=== PATIENT | male | born 1965 | race African-American/Black ===

== ENCOUNTER 2017-04-14 07:13 | Emergency (ER) | payer MEDICAID ==
[~2017-04-14] VITALS: Ht 182.9 cm; Wt 102.1 kg
[2017-04-14 07:30] VITALS: BP 143/79
== END 2017-04-14 07:48 | disposition home or self-care (01) ==
LOC: ER 07:13
DX: M54.2 Cervicalgia (principal); E04.9 Nontoxic goiter, unspecified; Z76.0 Encounter for issue of repeat prescription

== ENCOUNTER 2017-06-09 18:33 | Emergency (ER) | payer MEDICAID ==
[~2017-06-09] VITALS: Ht 182.9 cm; Wt 98.0 kg
[2017-06-09 18:52] VITALS: BP 135/84
== END 2017-06-09 20:59 | disposition home or self-care (01) ==
LOC: ER 18:33
DX: E11.9 Type 2 diabetes mellitus without complications (principal); I10 Essential (primary) hypertension; E07.9 Disorder of thyroid, unspecified; Z76.0 Encounter for issue of repeat prescription

== ENCOUNTER 2017-08-06 14:14 | Emergency (ER) | payer MEDICAID ==
[~2017-08-06] VITALS: Ht 182.9 cm; Wt 96.2 kg
[2017-08-06 16:48] VITALS: BP 148/92
[2017-08-06] MEDS ORDERED: KETOROLAC TROMETH 60MG/2ML VIAL IM ONE (17:30)
== END 2017-08-06 18:33 | disposition home or self-care (01) ==
LOC: ER 14:14
DX: S20.229A Contusion of unspecified back wall of thorax, initial encounter (principal); M79.1 Myalgia; E11.9 Type 2 diabetes mellitus without complications; I10 Essential (primary) hypertension; E07.9 Disorder of thyroid, unspecified; F17.210 Nicotine dependence, cigarettes, uncomplicated; R55 Syncope and collapse; W18.39XA Other fall on same level, initial encounter; Y93.89 Activity, other specified; Y92.89 Other specified places as the place of occurrence of the external cause; Y99.8 Other external cause status
CPT/HCPCS: 72131; 96372; 99284; J1885

== ENCOUNTER 2018-12-16 03:07 | Inpatient (IN) | payer MEDICAID ==
[~2018-12-16] VITALS: Ht 175.3 cm; Wt 87.2 kg
[2018-12-16 03:50] LABS: Basophils # (auto) 0 uL; Basophils % (auto) 0.1 % (0.0-2.0); Eosinophils # (auto) 0 uL; Eosinophils % (auto) 0.2 % (0.0-7.0); Lymphocytes # (auto) 1.3 uL; Monocytes # (auto) 0.4 uL; Monocytes % (auto) 5.1 % (0.0-12.0); Neutrophils # (auto) 6.2 uL; Neutrophils % (auto) 78.6 % (37.0-80.0); Nucleated Red Blood Cells % 0.2 %; White Blood Cell 7.9 10^3/uL (4.4-10.8)
[2018-12-16 03:51] LABS: Hematocrit 48.7 % (41.0-53.0); Hemoglobin 16.4 g/dL (13.5-17.5); Mean Corpuscular Hemoglobin 29.5 pg (28.0-32.0); Mean Corpuscular Hgb Conc. 33.6 g/dL (32.0-36.0); Mean Corpuscular Volume 87.8 fL (80.0-100.0); Platelet Count (auto) 316 10^3/uL (140-450); Red Blood Cells 5.55 10^6/uL (4.5-5.90)
[2018-12-16 04:10] LABS: Alanine Aminotransferase 25 U/L (16-61); Albumin 4.1 g/dL (3.4-5.0); Anion Gap 12 (5-15); Aspartate Aminotransferase 13 U/L (15-37); BUN/Creatinine Ratio 13.3; Blood Urea Nitrogen 18 mg/dL (7-18); Calcium 8.9 mg/dL (8.5-10.1); Carbon Dioxide 25 mmol/L (21-32); Chloride 101 mmol/L (98-107); GFR African American 71 mL/min; GFR Non-African American 59 mL/min; Glucose 242 mg/dL (74-106); Potassium 4.3 mmol/L (3.5-5.1); Sodium 138 mmol/L (136-145)
[2018-12-16 04:15] LABS: Alkaline Phosphatase 153 U/L (45-117); Bilirubin, Total 0.6 mg/dL (0.2-1.0); Total Protein 8.3 g/dL (6.4-8.2)
[2018-12-16] MEDS ORDERED: SODIUM CHLORIDE 0.9% 1,000 ML IVB ONE (06:45)
[2018-12-16] MEDS ORDERED: MORPHINE SULFATE 4 MG/ML SYR/VIAL IV ONE (06:45)
[2018-12-16] MEDS ORDERED: ONDANSETRON HCL 4 MG/2 ML VIAL IV ONE (06:45)
[2018-12-16] MEDS ORDERED: ONDANSETRON HCL 4 MG/2 ML VIAL IV PRN (07:00)
[2018-12-16] MEDS ORDERED: DEXTROSE (50%) 50ML SYRG IV PRN (07:00)
[2018-12-16 07:53] LABS: INR < 0.93 (0.9-1.15); Partial Thromboplastin Time 24.3 sec (23.64-32.05)
[2018-12-16] MEDS ORDERED: GASTROGRAFIN 120 ML SOL ONE (07:56)
[2018-12-16 08:00] LABS: Magnesium 2.6 mg/dL (1.6-2.6)
[2018-12-16] MEDS ORDERED: LIDOCAINE VISCOUS 2% 15ML UD ONE (08:13)
[2018-12-16] MEDS: SODIUM CHLORIDE 0.9% 1,000 ML IV SCH ×2 (10:01→17:47)
[2018-12-16] MEDS: MORPHINE SULFATE 4 MG/ML SYR/VIAL IV PRN ×3 (10:29→20:43)
[2018-12-16] MEDS ORDERED: LEVOFLOXACIN 500MG 100 ML IV ONE (10:45)
[2018-12-16] MEDS ORDERED: PROMETHAZINE HCL 25 MG/ML 1ML ONE (12:07)
[2018-12-16] MEDS: PROMETHAZINE HCL 25 MG/ML 1ML IV PRN ×2 (12:14→18:31)
[2018-12-16] MEDS: ACCU-CHEK COMFORT CURVE STRIP VI SCH ×3 (12:22→23:42)
[2018-12-16] MEDS: InsuLIN REG 1unit/0.01ml Soln (100units/ml) SC SCH ×3 (12:23→23:42)
--- NOTE | 2018-12-16 13:10 | NUR ---
MED/SURG admit from ER ALEX JONES admitted to MED/SURG unit after SBAR received. Patient oriented to Kaci Thurman, primary RN, unit, room, bed, and unit policies regarding patient care and visiting hours. Patient weighed by bedscale and encouraged to call if they need something. All questions and concerns addressed, patient verbalized understanding. Note:
--- NOTE | 2018-12-16 13:49 | NUR ---
UNABLE TO DO COMPLETE PHYSICAL ASSESSMENT. PATIENT IS IN PAIN AND REFUSING TO MOVE OR TAKE PANTS OFF. PATIENT IS MAKING MOANING SOUNDS.
[2018-12-16] MEDS: metroNIDAZOLE 500MG/100ML 100 ML IV SCH ×2 (15:15→21:16)
[2018-12-16 16:17] VITALS: BP 140/93
--- NOTE | 2018-12-16 16:34 | NUR ---
patient vomiting green bile
[2018-12-16 17:00] VITALS: BP 148/92
--- NOTE | 2018-12-16 17:11 | NUR ---
paged radiology to see if small bowel series was done.
--- NOTE | 2018-12-16 19:04 | NUR ---
call from Dr. Ibrahima Matos notified of patients high grade bowel obstruction.
--- NOTE | 2018-12-16 19:08 | NUR ---
Dr. Byrd returned called and stated to page Dr. Menard Addendum: 12/16/18 at 1943 by Kaci Thurman RN and to page the surgeon.
--- NOTE | 2018-12-16 19:14 | NUR ---
paged Dr. Rodriguez
--- NOTE | 2018-12-16 19:20 | NUR ---
Dr. Rodriguez ordered to placed in low continous suction NGT, done as ordered.
--- NOTE | 2018-12-16 19:26 | NUR ---
Paged Dr. Menard.
--- NOTE | 2018-12-16 19:40 | NUR ---
Dr. Sailaja Roth called back and said to call Dr. Rodriguez and reduced the phenergan to 12.5mg.i.v.p, and relayed that Lisbeth called and talked to already with order of low continuous suction N.G.T.
[2018-12-16 22:00] VITALS: BP 152/96
--- NOTE | 2018-12-16 23:43 | NUR ---
Insulin not given patient is NPO.
[2018-12-17] MEDS: SODIUM CHLORIDE 0.9% 1,000 ML IV SCH ×2 (02:52→18:27)
[2018-12-17 05:35] VITALS: BP 149/80
[2018-12-17] MEDS: ACCU-CHEK COMFORT CURVE STRIP VI SCH ×4 (05:48→23:51)
[2018-12-17] MEDS: InsuLIN REG 1unit/0.01ml Soln (100units/ml) SC SCH ×5 (05:49→23:52)
[2018-12-17] MEDS: metroNIDAZOLE 500MG/100ML 100 ML IV SCH ×3 (05:55→21:31)
[2018-12-17 06:56] LABS: Basophils # (auto) 0 uL; Basophils % (auto) 0.2 % (0.0-2.0); Eosinophils # (auto) 0 uL; Eosinophils % (auto) 0.1 % (0.0-7.0); Hematocrit 52.2 % (41.0-53.0); Hemoglobin 17.4 g/dL (13.5-17.5); Lymphocytes # (auto) 1.6 uL; Lymphocytes % (auto) 16.1 % (10.0-50.0); Mean Corpuscular Hemoglobin 29.4 pg (28.0-32.0); Mean Corpuscular Hgb Conc. 33.3 g/dL (32.0-36.0); Mean Corpuscular Volume 88.2 fL (80.0-100.0); Monocytes # (auto) 0.7 uL; Monocytes % (auto) 7.3 % (0.0-12.0); Neutrophils # (auto) 7.5 uL; Neutrophils % (auto) 76.3 % (37.0-80.0); Nucleated Red Blood Cells % 0.2 %; Platelet Count (auto) 324 10^3/uL (140-450); Red Blood Cells 5.92 10^6/uL (4.5-5.90); Red Cell Distribution Width 13.2 % (11.8-14.3); White Blood Cell 9.9 10^3/uL (4.4-10.8)
[2018-12-17 07:19] LABS: Albumin 3.7 g/dL (3.4-5.0); Calcium 9.2 mg/dL (8.5-10.1); Potassium 4.4 mmol/L (3.5-5.1)
--- NOTE | 2018-12-17 07:20 | NUR ---
PER DR. SAMANO; PT TO UNDERGO EXPLORATORY LAP. TODAY. CONSENT FORMS OBTAINED, PT MADE AWARE OF POSSIBLE PLAN. IN AGREEMENT, PT REPORTS HE WILL SIGN THE FORM ONCE SPEAKS TO HIM. PRE-OP PREP CHG WIPES COMPLETED. CALL LIGHT WITHIN REACH.
[2018-12-17 07:22] LABS: BUN/Creatinine Ratio 18.2; Bilirubin, Total 0.7 mg/dL (0.2-1.0)
--- NOTE | 2018-12-17 07:41 | NUR ---
Report given to Lisbeth Ortega to assume care, [id number] is resting no distress.
[2018-12-17 08:00] VITALS: BP 152/84
[2018-12-17] MEDS: LEVOFLOXACIN 500MG 100 ML IV SCH (10:02)
--- NOTE | 2018-12-17 11:29 | NUR ---
PT JUST HAD AN EPISODE OF GAS AND HE REPORTS THAT HE WANTS TO WAIT ON THE SURGERY. PT REPORTS HE WOULD LIKE TO EAT SOMETHING AND WAIT TO SEE IF HE PASSES MORE GAS BEFORE SURGICAL INTERVENTION. PRE-OP CALLED AND INFORMED OF LATEST STATUS.
[2018-12-17 12:00] VITALS: BP 154/91
[2018-12-17 16:59] VITALS: BP 139/90
--- NOTE | 2018-12-17 18:10 | NUR ---
PT REPORTS FEELING BETTER; NO ABDOMINAL PAIN AT THE MOMENT. PT HAD A BM REPORTS MODERATE IN QUANTITY, NORMAL IN CONSISTENCY. PT HAS HAD TWO EPISODES OF PASSING GAS DURING SHIFT. NGT TO LCS WITH 150ML OF GREEN OUTPUT. BGT REMAINS AT NOTCH 45 PATENT. BED IN LOWEST POSITION, CALL LIGHT WITHIN REACH.
[2018-12-17] MEDS: MORPHINE SULFATE 4 MG/ML SYR/VIAL IV PRN (19:48)
--- NOTE | 2018-12-17 19:48 | NUR ---
Opening Shift Note Assumed care of patient, awake and alert. No S/S of distress/SOB c/p abdominal pain. Instructed on POC and to call for assist PRN, will continue to monitor for changes Q1hr and PRN.Medicated with morphine 2mg.i.v.p fpr pain level of 6/10 as needed.
--- NOTE | 2018-12-17 19:50 | NUR ---
Patient said he had pass gas today and had a bowel movement today, NGT in placed with little output of greenish color connected to low continuos suction.
[2018-12-17 22:00] VITALS: BP 153/95
--- NOTE | 2018-12-17 23:00 | NUR ---
Family called said she is a sister, wants some update, but she is not in the computer for next of kin and Lisbeth barton give health information due to privacy act, and Lisbeth relayed the situation to the patient and patient said he will call them later,and told Lisbeth Garciato tell his family to sleep.
--- NOTE | 2018-12-18 | NUR ---
Patient requesting ice chips to moisten his lips, advise not to eat it, and said he drink water already water in the toilet during daytime.
[2018-12-18] MEDS: SODIUM CHLORIDE 0.9% 1,000 ML IV SCH ×2 (04:11→14:35)
[2018-12-18 05:15] VITALS: BP 162/98
[2018-12-18] MEDS: ACCU-CHEK COMFORT CURVE STRIP VI SCH ×3 (05:30→17:41)
[2018-12-18] MEDS: InsuLIN REG 1unit/0.01ml Soln (100units/ml) SC SCH ×3 (05:30→17:41)
[2018-12-18] MEDS: metroNIDAZOLE 500MG/100ML 100 ML IV SCH ×3 (05:30→21:09)
[2018-12-18] MEDS: MORPHINE SULFATE 4 MG/ML SYR/VIAL IV PRN ×2 (05:48→16:33)
[2018-12-18] MEDS: PROMETHAZINE HCL 25 MG/ML 1ML IV PRN (05:48)
--- NOTE | 2018-12-18 06:56 | NUR ---
NGT output 100cc greenish for the whole shift.
[2018-12-18 07:06] LABS: Basophils # (auto) 0 uL; Basophils % (auto) 0.5 % (0.0-2.0); Eosinophils # (auto) 0.1 uL; Eosinophils % (auto) 1.2 % (0.0-7.0); Hematocrit 51.9 % (41.0-53.0); Lymphocytes # (auto) 1.7 uL; Lymphocytes % (auto) 22.3 % (10.0-50.0); Mean Corpuscular Hemoglobin 29.2 pg (28.0-32.0); Mean Corpuscular Hgb Conc. 32.7 g/dL (32.0-36.0); Mean Corpuscular Volume 89.4 fL (80.0-100.0); Monocytes # (auto) 0.6 uL; Monocytes % (auto) 7.4 % (0.0-12.0); Neutrophils # (auto) 5.2 uL; Neutrophils % (auto) 68.6 % (37.0-80.0); Nucleated Red Blood Cells % 0.1 %; Platelet Count (auto) 283 10^3/uL (140-450); Red Blood Cells 5.81 10^6/uL (4.5-5.90); White Blood Cell 7.6 10^3/uL (4.4-10.8)
[2018-12-18 07:14] LABS: Albumin 3.8 g/dL (3.4-5.0); Calcium 9.2 mg/dL (8.5-10.1); Potassium 4.1 mmol/L (3.5-5.1)
[2018-12-18 07:18] LABS: BUN/Creatinine Ratio 21.8; Bilirubin, Total 0.9 mg/dL (0.2-1.0)
--- NOTE | 2018-12-18 07:30 | NUR ---
PT SLEEPING AT MOMENT. NGT TO RIGHT NARES TO LCS, NO DRAINAGE AT MOMENT. EFFORTLESS BREATHING ON ROOM AIR. IV PATENT AND INFUSING WELL TO LAC#20. BED WHEELS LOCKED, BED IN LOWEST POSITION, CALL LIGHT WITHIN REACH. WILL CONTINUE TO MONITOR.
--- NOTE | 2018-12-18 07:42 | NUR ---
Report given to Lisbeth Ortega to assume care, patient is resting no distress.
[2018-12-18 08:40] VITALS: BP 160/97
[2018-12-18] MEDS ORDERED: LABETALOL HCL 5 MG/ML ML 20ML VIAL IV PRN (09:30)
[2018-12-18] MEDS: LEVOFLOXACIN 500MG 100 ML IV SCH (09:39)
[2018-12-18] MEDS ORDERED: IOHEXOL 300 MG/ML 100ML BOTTLE IJ ONE (10:05)
--- NOTE | 2018-12-18 10:43 | NUR ---
PT TAKEN TO CT SCAN TRANSPORTED VIA WHEELCHAIR. NO DISTRESS AT MOMENT.
--- NOTE | 2018-12-18 12:17 | NUR ---
NUTRITION ASSESSMENT NOTES Please refer to link notes of nutrition screen form filed under the intervention section of the plan of care for further details. Est. Needs: 1700 kcal to 2150 kcal (20-25 kcal/kgBW), 68 gms to 86 gms pro (0.8-1.0 gms/kgBW). Will continue to monitor pertinent labs and reassess nutrient need prn Thank you. Addendum: 12/18/18 at [address] Amended: Links added.
[2018-12-18 12:30] VITALS: BP 137/89
--- NOTE | 2018-12-18 15:50 | NUR ---
DR. SAMANO MADE AWARE OF CT SCAN FINDINGS.
--- NOTE | 2018-12-18 16:10 | NUR ---
PT HAD BM. REPORTS PAIN TO LOWER ABDOMINAL QUADRANTS. CALL LIGHT WITHIN REACH.
[2018-12-18 16:56] VITALS: BP 163/87
--- NOTE | 2018-12-18 19:30 | NUR ---
Opening shift note Patient in bed sleeping with eyes closed, easily arousable to verbal stimuli, however answers assessment questions with eyes closed. Patient's respiration even and unlabored, denies pain and discomfort at this time. plan of care discussed, patient verbalized understanding.
[2018-12-18 22:14] VITALS: BP 156/81
[2018-12-19] VITALS (7 sets, daily range): BP systolic 144–166; BP diastolic 78–111
[2018-12-19] MEDS: ACCU-CHEK COMFORT CURVE STRIP VI SCH ×4 (00:53→18:03)
[2018-12-19] MEDS: InsuLIN REG 1unit/0.01ml Soln (100units/ml) SC SCH ×4 (00:54→18:03)
[2018-12-19] MEDS: SODIUM CHLORIDE 0.9% 1,000 ML IV SCH ×3 (01:13→23:56)
[2018-12-19] MEDS: MORPHINE SULFATE 4 MG/ML SYR/VIAL IV PRN ×2 (01:14→10:44)
--- NOTE | 2018-12-19 01:14 | NUR ---
Noted patient's NG tube to right nare slightly dislodged. Charge nurse made aware. CN advanced NG tube and placement verified by 2 RNs by auscultating stomach area while introducing air. Patient tolerated procedure well. NG tube suctioning moderate amount of green fluid. Will continue to monitor.
[2018-12-19] MEDS: metroNIDAZOLE 500MG/100ML 100 ML IV SCH ×3 (05:36→21:46)
[2018-12-19 07:12] LABS: Basophils # (auto) 0 uL; Basophils % (auto) 0.3 % (0.0-2.0); Eosinophils # (auto) 0.1 uL; Eosinophils % (auto) 1.4 % (0.0-7.0); Hematocrit 45.6 % (41.0-53.0); Hemoglobin 15.1 g/dL (13.5-17.5); Lymphocytes # (auto) 1.5 uL; Lymphocytes % (auto) 21.8 % (10.0-50.0); Mean Corpuscular Hemoglobin 29.4 pg (28.0-32.0); Mean Corpuscular Hgb Conc. 33.2 g/dL (32.0-36.0); Mean Corpuscular Volume 88.4 fL (80.0-100.0); Monocytes # (auto) 0.6 uL; Monocytes % (auto) 9.5 % (0.0-12.0); Neutrophils # (auto) 4.5 uL; Nucleated Red Blood Cells % 0.1 %; Platelet Count (auto) 265 10^3/uL (140-450); Red Blood Cells 5.16 10^6/uL (4.5-5.90); Red Cell Distribution Width 12.6 % (11.8-14.3); White Blood Cell 6.7 10^3/uL (4.4-10.8)
--- NOTE | 2018-12-19 07:20 | NUR ---
Opening Shift Note Assumed care of patient, awake and alert. No S/S of distress/SOB or pain. Instructed on POC and to call for assist PRN, will continue to monitor for changes Q1hr and PRN.
[2018-12-19 07:33] LABS: Potassium 4.3 mmol/L (3.5-5.1)
[2018-12-19 07:42] LABS: BUN/Creatinine Ratio 20.9; Calcium 8.8 mg/dL (8.5-10.1)
[2018-12-19] MEDS: LEVOFLOXACIN 500MG 100 ML IV SCH (10:49)
--- NOTE | 2018-12-19 12:40 | NUR ---
NG tube NG tube to be advanced per Dr. Cazares. NG advanced to 75 cm. Placement confirmed by air auscultation.
--- NOTE | 2018-12-19 15:06 | NUR ---
NG Patient found in room with NG tube out and pt reported he pulled NG tube out. Pt stated it was okay per Dr. Rodriguez. Dr. Rodriguez. Dr. Rodriguez paged. aware and states NG can be left out and patient can be started on clear liquids.
[2018-12-20] MEDS: InsuLIN REG 1unit/0.01ml Soln (100units/ml) SC SCH ×5 (00:01→23:36)
[2018-12-20] MEDS: ACCU-CHEK COMFORT CURVE STRIP VI SCH ×5 (00:01→23:36)
[2018-12-20] MEDS: PROMETHAZINE HCL 25 MG/ML 1ML IV PRN (01:36)
[2018-12-20] MEDS: MORPHINE SULFATE 4 MG/ML SYR/VIAL IV PRN ×2 (01:37→17:34)
--- NOTE | 2018-12-20 01:37 | NUR ---
Patient with 1 episode of vomiting. Vomitus moderate amount of greenish brown liquid. Phenergan administered as ordered. Will continue to monitor.
--- NOTE | 2018-12-20 04:38 | NUR ---
Patient with another episode of vomiting. Vomitus with heavy amount of green liquid. Phenergan not due to be given yet, patient stated, he feels better and does not need antinausea medication at this time. Patient also stating does not want another NG tube to be inserted, if ever. Patient refused to have bed linens changed, per patient, he will feel nauseated whenever he moves. Mouth care provided. Will continue to monitor. VS 159/109, 108, 98%, 20, 0/10.
[2018-12-20 05:00] VITALS: BP 155/93
[2018-12-20] MEDS: metroNIDAZOLE 500MG/100ML 100 ML IV SCH ×3 (05:18→21:40)
--- NOTE | 2018-12-20 07:30 | NUR ---
Opening Shift Note Assumed care of patient, awake, alert, and oriented x4. No S/S of distress/SOB, but patient complaining of pain in abdomen of 3/10. IV is in left AC 20 gauge asymptomatic, intact, patent, and saline locked. Bed is locked and in lowest position and call light is within reach. Instructed on POC and to call for assist PRN, and patient verbalized understanding. Will continue to monitor for changes Q1hr and PRN.
[2018-12-20 08:41] VITALS: BP 141/97
[2018-12-20] MEDS: LISINOPRIL 10 MG TAB PO SCH (10:12)
[2018-12-20] MEDS: LEVOFLOXACIN 500MG 100 ML IV SCH (10:12)
--- NOTE | 2018-12-20 11:00 | NUR ---
Dr. Sage MD, at bedside. New orders received.
[2018-12-20] MEDS: SODIUM CHLORIDE 0.9% 1,000 ML IV SCH ×2 (11:03→22:10)
--- NOTE | 2018-12-20 11:06 | NUR ---
Nutrition Follow-up Notes Wt.: 85.1 kg Pt was sleeping with no family by bedside. per records pt with resolving SBO off NG tube. pt is now advanced to clear liq diet with inadequate PO of 25% x1 per RN doc since this am Est. Needs: 1700 kcal to 2150 kcal (20-25 kcal/kgBW), 68 gms to 86 gms pro (0.8-1.0 gms/kgBW). Will continue to monitor pertinent labs and reassess nutrient need prn Labs: A1C 8.1 H, POC GLU 171 H, BUN 23 H Skin: Saúl scale 21 low risk, skin intact per production intern. GI: Pt has no BM reported per production intern. PES: Altered nutrition related lab values r/t acute/chronic medical condition aeb hyperglycemia, elev. BUN, ALP Increased nutrient needs r/t current medical condition aeb Intractable abdominal pain,Intractable vomiting,Small bowel obstruction, NPO. Will continue to monitor PO intake, skin status, pertinent labs and weight trend. F/u in 2-3 days. Rec.: 1.) Advance gradually to oral diet (Soft Consistent Std. Carb: 60 gms/meal diet) when medically appropriate. 2.) IRefer to RD for further nutrition education and weight monitoring upon discharged. 3.) Continue current plan of care.
--- NOTE | 2018-12-20 12:30 | NUR ---
Patient vomiting dark green emesis, three times. Informed Dr. Sage MD, and received new orders.
[2018-12-20 12:56] VITALS: BP 151/90
--- NOTE | 2018-12-20 13:00 | NUR ---
Dr. Fragoso, Supervisor Pyrotechnic Loading, at bedside.
--- NOTE | 2018-12-20 16:40 | NUR ---
Nasogastric tube insertion Patient educated on need for NG tube. All questions addressed. NGT inserted per MD order. Placement verified by aspiration of stomach contents, auscultation and chest xray.
[2018-12-20 16:45] VITALS: BP 144/95
--- NOTE | 2018-12-20 18:00 | NUR ---
PATIENT REFUSED INSULIN Blood sugar check was 143; patient refused insulin coverage at this time. Patient is currently NPO. Will continue to monitor Q1.
--- NOTE | 2018-12-20 19:20 | NUR ---
Endorsed care to evening or night nurse supervisor RNHuong.
--- NOTE | 2018-12-20 19:30 | NUR ---
Opening Shift Note Assumed care of patient, awake and alert. No S/S of distress/SOB or pain. NGT Intermittent suction. HOB elevated Instructed on POC and to call for assist PRN, will continue to monitor for changes Q1hr and PRN. Bed locked and in lowest position, call light within reach.
[2018-12-20 21:45] VITALS: BP 127/82
[2018-12-21] MEDS: MORPHINE SULFATE 4 MG/ML SYR/VIAL IV PRN ×3 (01:44→14:25)
[2018-12-21] MEDS: PROMETHAZINE HCL 25 MG/ML 1ML IV PRN ×4 (01:45→23:26)
[2018-12-21 04:43] VITALS: BP 129/78
[2018-12-21] MEDS: InsuLIN REG 1unit/0.01ml Soln (100units/ml) SC SCH ×3 (06:00→17:59)
[2018-12-21] MEDS: ACCU-CHEK COMFORT CURVE STRIP VI SCH ×3 (06:00→17:59)
[2018-12-21] MEDS: metroNIDAZOLE 500MG/100ML 100 ML IV SCH ×2 (07:01→14:21)
[2018-12-21 07:16] LABS: BUN/Creatinine Ratio 20.7; Calcium 8.4 mg/dL (8.5-10.1); Magnesium 2.6 mg/dL (1.6-2.6); Potassium 3.8 mmol/L (3.5-5.1)
--- NOTE | 2018-12-21 07:30 | NUR ---
Opening Shift Note Assumed care of patient; patient lying supine in bed with eyes closed, but alert, and oriented x4, and answering questions. No S/S of distress/SOB or pain. IV is in left AC asymptomatic, intact, patent, and infusing normal saline at 90 mL/hour. Bed is locked and in lowest position and call light is within reach. Instructed on POC and to call for assist PRN, and patient verbalized understanding. Will continue to monitor for changes Q1hr and PRN.
--- NOTE | 2018-12-21 07:46 | NUR ---
CLOSING NOTE Report endorsed to day RN, intermittent suctioning, pt resting no s/sx's of distress or sob noted
[2018-12-21 08:53] VITALS: BP 145/88
[2018-12-21] MEDS: LISINOPRIL 10 MG TAB PO SCH (10:00)
--- NOTE | 2018-12-21 10:00 | NUR ---
PATIENT REFUSED BP MEDS Patient refused 1000 blood pressure medication Lisinopril 10 mg. Current blood pressure is 145/88, and heart rate is 99 bpm. Educated patient on high blood pressure medication and the risk of having high blood pressure. Patient verbalized understanding, but still refused medication. Will continue to monitor patient Q1.
[2018-12-21] MEDS: SODIUM CHLORIDE 0.9% 1,000 ML IV SCH ×2 (10:05→20:24)
[2018-12-21] MEDS: LEVOFLOXACIN 500MG 100 ML IV SCH (10:05)
--- NOTE | 2018-12-21 11:59 | NUR ---
Dr. Fragoso, Lockstitch Binder, at bedside. New orders received.
--- NOTE | 2018-12-21 12:00 | NUR ---
Patient refused 1200 blood sugar check, and insulin coverage. Will continue to monitor patient Q1.
[2018-12-21 12:56] VITALS: BP 131/79
--- NOTE | 2018-12-21 14:00 | NUR ---
IV removal IV DC'd with sterile technique, catheter fully intact. Pressure dressing applied to site. Patient tolerated procedure well.
--- NOTE | 2018-12-21 14:20 | NUR ---
IV insertion IV access obtained, via clean sterile technique by inserting 20 gauge catheter at right wrist after 1 attempt. IV secured properly. No trauma to site. Patient tolerated procedure well.
--- NOTE | 2018-12-21 14:43 | NUR ---
Patient complaining of abdominal pain and requesting a heat pack; brought in 2 heat packs and gave to patient. Will continue to monitor Q1.
[2018-12-21 16:58] VITALS: BP 122/81
--- NOTE | 2018-12-21 17:59 | NUR ---
Patient and family requesting to speak with Dr. Case, Surgeon; paged Dr. Case, and spoke with him, and he stated he would be here to consult the patient tonight. Will continue to monitor patient Q1.
--- NOTE | 2018-12-21 18:01 | NUR ---
Patient 1800 blood sugar check was 110. No insulin due at this time due to level being within normal range on patient's scale.
--- NOTE | 2018-12-21 19:29 | NUR ---
Dr. Case, Surgeon, at bedside consulting patient and family.
--- NOTE | 2018-12-21 19:30 | NUR ---
Opening Shift Note Assumed care of patient, awake and alert. Dr. Case at bedside.Patient just came from shower. States " I feel so much better just from showering." Family at bedside No S/S of distress/SOB or pain. NG tube in place. Dr. Case said ok to leave off IS for a couple hours and see how he feels. Will follow up. Bowel sounds although heard x4 quadrants are very sluggish. Instructed on POC and to call for assist PRN, will continue to monitor for changes Q1hr and PRN.
[2018-12-21 20:00] VITALS: BP 156/102
[2018-12-21 22:00] VITALS: BP 146/85
--- NOTE | 2018-12-22 01:00 | NUR ---
NG tube came out. Patient coughing and dislodged it. He did follow with 2 bowel movements. Will notify MD and ask that we try leaving out since he had a bm and was able to have BM. No distress at this time
[2018-12-22] MEDS: metroNIDAZOLE 500MG/100ML 100 ML IV SCH ×4 (01:08→21:53)
[2018-12-22] MEDS: ACCU-CHEK COMFORT CURVE STRIP VI SCH ×5 (01:16→23:39)
[2018-12-22] MEDS: InsuLIN REG 1unit/0.01ml Soln (100units/ml) SC SCH ×5 (01:16→23:39)
[2018-12-22 05:32] VITALS: BP 141/76
--- NOTE | 2018-12-22 08:30 | NUR ---
Spoke with Dr. Flores. Says we can leave NG tube out and start with water and go from there. Patient requested his IV be removed due to its location. States, It feels like its poking me everytime I move." No inflammation noted. Flushes well. Removed IV and endorsed to STANFORD Arreguin.
[2018-12-22 08:48] VITALS: BP 123/69
[2018-12-22] MEDS: LEVOFLOXACIN 500MG 100 ML IV SCH (11:53)
[2018-12-22] MEDS: SODIUM CHLORIDE 0.9% 1,000 ML IV SCH ×2 (11:53→17:13)
[2018-12-22] MEDS: LISINOPRIL 10 MG TAB PO SCH (11:54)
[2018-12-22 12:06] VITALS: BP 122/74
[2018-12-22] MEDS: MORPHINE SULFATE 4 MG/ML SYR/VIAL IV PRN ×2 (14:01→21:54)
[2018-12-22 16:50] VITALS: BP 130/81
[2018-12-22] MEDS: PROMETHAZINE HCL 25 MG/ML 1ML IV PRN (21:54)
[2018-12-22 22:00] VITALS: BP 132/90
[2018-12-23 05:20] VITALS: BP 123/71
[2018-12-23] MEDS: ACCU-CHEK COMFORT CURVE STRIP VI SCH ×3 (06:00→17:39)
[2018-12-23] MEDS: InsuLIN REG 1unit/0.01ml Soln (100units/ml) SC SCH ×3 (06:00→17:39)
[2018-12-23] MEDS: metroNIDAZOLE 500MG/100ML 100 ML IV SCH ×2 (06:28→14:16)
[2018-12-23] MEDS: SODIUM CHLORIDE 0.9% 1,000 ML IV SCH ×2 (06:29→16:52)
--- NOTE | 2018-12-23 07:50 | NUR ---
OPENING NOTE: REPORT RECEIVED FROM RAMIRO COYNE. PATIENT RESTING IN BED. NO SIGNS OF DISTRESS NOTED. UPDATED ON POC, PATIENT VERBALIZED UNDERSTANDING. NO COMPLAINTS OF PAIN, A/O X 4. CALL LIGHT WITHIN REACH. PATIENT VERBALIZED UNDERSTANDING.
--- NOTE | 2018-12-23 09:00 | NUR ---
MD PATRICIA AT BEDSIDE, UPDATED ON STATUS INCLUDING PATIENT IS REFUSING VITALS AND PATIENT HAD A BOWEL MOVEMENT LAST NIGHT. TOLERATING SOFT DIET WELL. MD IS AWARE. PER MD ADVANCE DIET ORDERED.
--- NOTE | 2018-12-23 09:13 | NUR ---
patient refuse the vitals at 08:00am and i notified the Rn.nurse
--- NOTE | 2018-12-23 10:00 | NUR ---
assessment No needs identified. Addendum: 12/24/18 at 0833 by Rena STODDARD Amended: Links added.
[2018-12-23] MEDS: LEVOFLOXACIN 500MG 100 ML IV SCH (10:10)
[2018-12-23] MEDS: LISINOPRIL 10 MG TAB PO SCH (10:12)
[2018-12-23 10:26] LABS: Basophils # (auto) 0 uL; Basophils % (auto) 0.2 % (0.0-2.0); Eosinophils # (auto) 0.1 uL; Eosinophils % (auto) 3.3 % (0.0-7.0); Hematocrit 39.6 % (41.0-53.0); Hemoglobin 13.3 g/dL (13.5-17.5); Lymphocytes % (auto) 25.1 % (10.0-50.0); Mean Corpuscular Hemoglobin 29.6 pg (28.0-32.0); Mean Corpuscular Hgb Conc. 33.5 g/dL (32.0-36.0); Mean Corpuscular Volume 88.4 fL (80.0-100.0); Monocytes # (auto) 0.5 uL; Monocytes % (auto) 11.5 % (0.0-12.0); Neutrophils # (auto) 2.5 uL; Neutrophils % (auto) 59.9 % (37.0-80.0); Nucleated Red Blood Cells % 0.2 %; Platelet Count (auto) 229 10^3/uL (140-450); Red Blood Cells 4.47 10^6/uL (4.5-5.90); Red Cell Distribution Width 12.4 % (11.8-14.3); White Blood Cell 4.1 10^3/uL (4.4-10.8)
[2018-12-23 10:36] LABS: Calcium 8.3 mg/dL (8.5-10.1); Potassium 3.5 mmol/L (3.5-5.1)
[2018-12-23 10:41] LABS: BUN/Creatinine Ratio 14.3; Bilirubin, Total 0.3 mg/dL (0.2-1.0); Total Protein 5.9 g/dL (6.4-8.2)
[2018-12-23 17:20] VITALS: BP 127/79
--- NOTE | 2018-12-23 19:23 | NUR ---
CLOSING SHIFT NOTE ENDORSED CARE TO AIRCRAFT SALES REPRESENTATIVE STANFORD RUBIO. PATIENT HAS NO S/S OF DISTRESS/SOB OR PAIN AT THIS TIME.
--- NOTE | 2018-12-23 19:55 | NUR ---
AMA Note ALEX JONES states they want to leave the hospital Against Medical Advice (AMA). Patient encouraged to stay for further treatment/stabilization. Patient advised of the risks and benefits of leaving AMA. Patient verbalized understanding. Patient encouraged to return to the ER if symptoms do not improve or worsen. Notified doctor Sailaja and charge nurse.
== END 2018-12-23 20:00 | disposition left against medical advice (07) | DRG 247 ==
LOC: EDBD 03:07 → ER 03:12 → OVERFLOW 06:55 → CENTRAL 13:04
PROVIDERS: ADMIT Nurse Practitioner; ATTEND Internal Medicine
DX: K56.50 Intestinal adhesions [bands], unspecified as to partial versus complete obstruction (principal); E11.65 Type 2 diabetes mellitus with hyperglycemia; I10 Essential (primary) hypertension; E04.9 Nontoxic goiter, unspecified; Z91.14 Patient's other noncompliance with medication regimen
CPT/HCPCS: 36415; 71045; 71260; 74018; 74021; 74176; 74177; 74250; 80048; 80053; 82962; 83036; 83690; 83735; 84100; 84439; 84443; 84484; 85025; 85610; 85730; 86850; 86900; 86901; 93005; 94761; 96361; 96365; 96375; G0378; J1815; J1956; J2405; J3490

== ENCOUNTER 2023-05-29 11:14 | Inpatient (IN) | payer MEDICAID, OTHER ==
[~2023-05-29] VITALS: Ht 177.8 cm; Wt 86.1 kg
[2023-05-29] MEDS ORDERED: SODIUM CHLORIDE 0.9% 2,700 ML IV ONE (12:15)
[2023-05-29] MEDS ORDERED: DICYCLOMINE HCL (10MG/ML) 2 ML AMPULE IM ONE (12:15)
[2023-05-29] MEDS ORDERED: ONDANSETRON HCL 4 MG/2 ML VIAL IV ONE (12:15)
[2023-05-29 12:53] LABS: Basophils # (auto) 0 10 ^3/uL (0-0.2); Basophils % (auto) 0.2 % (0.0-2.0); Eosinophils # (auto) 0 10 ^3/uL (0-0.8); Eosinophils % (auto) 0.2 % (0.0-7.0); Lymphocytes # (auto) 0.4 10 ^3/uL (0.4-5.4); Lymphocytes % (auto) 5.8 % (10.0-50.0); Monocytes # (auto) 0.3 10 ^3/uL (0-1.3); Red Cell Distribution Width 13.3 % (11.8-14.3); White Blood Cell 6.9 10^3/uL (4.4-10.8)
[2023-05-29 12:55] LABS: Hematocrit 41.8 % (41.0-53.0); Hemoglobin 13.7 g/dL (13.5-17.5); Mean Corpuscular Hemoglobin 27.2 pg (28.0-32.0); Mean Corpuscular Hgb Conc. 32.7 g/dL (32.0-36.0); Mean Corpuscular Volume 83.2 fL (80.0-100.0); Monocytes % (auto) 4.3 % (0.0-12.0); Neutrophils # (auto) 6.2 10 ^3/uL (1.6-8.6); Neutrophils % (auto) 89.5 % (37.0-80.0); Red Blood Cells 5.02 10^6/uL (4.5-5.90)
[2023-05-29 13:05] LABS: INR 0.97 (0.9-1.15); Prothrombin Time 10.2 sec (9.3-11.8)
[2023-05-29 13:09] LABS: Alanine Aminotransferase 34 U/L (7-40); Albumin 4.2 g/dL (3.2-4.8); Alkaline Phosphatase 176 U/L (46-116); Anion Gap 6 (5-15); Aspartate Aminotransferase 18 U/L (13-40); BUN/Creatinine Ratio 19.2 (10.0-20.0); Blood Urea Nitrogen 19 mg/dL (9-23); Calcium 9.3 mg/dL (8.5-10.1); Carbon Dioxide 26 mmol/L (20-30); Chloride 104 mmol/L (98-107); Glucose 192 mg/dL (74-106); Potassium 5.2 mmol/L (3.5-5.1); Sodium 136 mmol/L (136-145)
[2023-05-29 13:10] LABS: Bilirubin, Total 0.5 mg/dL (0.2-1.0); Total Protein 6.9 g/dL (5.7-8.2)
[2023-05-29 14:02] LABS: Lipase 31 U/L (12-53)
[2023-05-29 14:03] LABS: Magnesium 1.7 mg/dL (1.6-2.6)
[2023-05-29] MEDS ORDERED: ASPirin-EC 325mg tab PO ONE (17:15)
[2023-05-29] MEDS ORDERED: ONDANSETRON HCL 4 MG/2 ML VIAL IV PRN (19:30)
[2023-05-29] MEDS ORDERED: MORPHINE SULFATE INJ 2 MG/ml SYRG IV PRN (19:30)
[2023-05-29] MEDS ORDERED: NITROGLYCERIN 0.4 MG SL TAB SL PRN (19:30)
[2023-05-29] MEDS ORDERED: ACETAMINOPHEN 325 MG TAB PO PRN (19:30)
[2023-05-29] MEDS ORDERED: DEXTROSE (50%) 50ML SYRG IV PRN (19:30)
[2023-05-29] MEDS ORDERED: ALBUTEROL MEDNEB 2.5 mg/3ml NEB NEB PRN (19:30)
[2023-05-29 19:46] LABS: Urine Bacteria NONE SEEN /hpf (None Seen); Urine Blood Negative /uL (Negative); Urine Clarity Clear (Clear); Urine Color Yellow (Yellow); Urine Protein, UAD 1+ (Negative); Urine Specific Gravity 1.028 (1.001-1.035); Urine WBC 1 /hpf (0 - 3)
[2023-05-29] MEDS ORDERED: LISI20TA56 PO (19:46)
[2023-05-29] MEDS ORDERED: GABA-1250 PO (19:46)
[2023-05-29] MEDS ORDERED: METF-372 PO (19:46)
[2023-05-29] MEDS ORDERED: LABETALOL HCL 5 MG/ML 4ML SYRINGE IV PRN (20:00)
[2023-05-29] MEDS ORDERED: levoFLOXacin 500MG 100 ML IV ONE (20:30)
[2023-05-29 21:49] VITALS: BP 127/82; PULSE 135; RESP 21; TEMP 98.8; O2SAT 98
[2023-05-29 21:50] VITALS: PULSE 130; RESP 18; O2SAT 96
[2023-05-29] MEDS: SODIUM CHLORIDE 0.9% 1,000 ML IV SCH (22:32)
[2023-05-29] MEDS: ACCU-CHEK COMFORT CURVE STRIP VI SCH (22:33)
[2023-05-29] MEDS: ATORVASTATIN 20 MG TAB PO SCH (22:39)
[2023-05-29] MEDS: GABAPENTIN 300 MG CAP PO SCH (22:39)
[2023-05-29] MEDS: InsuLIN REG 1unit/0.01ml Soln (100units/ml) SC SCH (22:40)
[2023-05-30] VITALS (7 sets, daily range): BP systolic 101–113; BP diastolic 54–76; PULSE 89–119; RESP 18–24; TEMP 98.3–99.5; O2SAT 96–100
[2023-05-30] MEDS ORDERED: IOHEXOL 350 MG/ML 100ML IJ ONE (00:30)
[2023-05-30 02:05] LABS: COVID19 ANTIGEN SOFIA FIA NEGATIVE (NEGATIVE)
[2023-05-30] MEDS: SODIUM CHLORIDE 0.9% 1,000 ML IV SCH ×2 (04:00→12:10)
[2023-05-30 05:39] LABS: Alanine Aminotransferase 27 U/L (7-40); Albumin 3.7 g/dL (3.2-4.8); Alkaline Phosphatase 174 U/L (46-116); Anion Gap 10 (5-15); Aspartate Aminotransferase 22 U/L (13-40); BUN/Creatinine Ratio 15.4 (10.0-20.0); Bilirubin, Total 0.5 mg/dL (0.2-1.0); Blood Urea Nitrogen 16 mg/dL (9-23); Calcium 8.3 mg/dL (8.7-10.4); Carbon Dioxide 23 mmol/L (20-30); Chloride 103 mmol/L (98-107); Potassium 3.7 mmol/L (3.5-5.1); Sodium 136 mmol/L (136-145); Total Protein 6.4 g/dL (5.7-8.2)
[2023-05-30 05:50] LABS: Basophils # (auto) 0 10 ^3/uL (0-0.2); Basophils % (auto) 0.5 % (0.0-2.0); Eosinophils # (auto) 0 10 ^3/uL (0-0.8); Eosinophils % (auto) 0.3 % (0.0-7.0); Hematocrit 36.6 % (41.0-53.0); Hemoglobin 12.2 g/dL (13.5-17.5); Lymphocytes # (auto) 1.3 10 ^3/uL (0.4-5.4); Lymphocytes % (auto) 31.1 % (10.0-50.0); Mean Corpuscular Hemoglobin 27.6 pg (28.0-32.0); Mean Corpuscular Hgb Conc. 33.4 g/dL (32.0-36.0); Mean Corpuscular Volume 82.6 fL (80.0-100.0); Monocytes # (auto) 0.4 10 ^3/uL (0-1.3); Monocytes % (auto) 8.8 % (0.0-12.0); Neutrophils # (auto) 2.5 10 ^3/uL (1.6-8.6); Neutrophils % (auto) 59.3 % (37.0-80.0); Nucleated Red Blood Cells % 0.1 %; Red Blood Cells 4.43 10^6/uL (4.5-5.90); Red Cell Distribution Width 13.3 % (11.8-14.3); White Blood Cell 4.2 10^3/uL (4.4-10.8)
[2023-05-30 05:54] LABS: Cholesterol 154 mg/dL (< 200); Glucose 131 mg/dL (74-106); Triglycerides 112 mg/dL (< 150)
[2023-05-30 06:01] LABS: LDL Cholesterol 105 mg/dL (< 100)
[2023-05-30] MEDS: GABAPENTIN 300 MG CAP PO SCH ×3 (06:21→22:28)
[2023-05-30] MEDS: InsuLIN REG 1unit/0.01ml Soln (100units/ml) SC SCH ×4 (06:22→22:37)
[2023-05-30] MEDS: ACCU-CHEK COMFORT CURVE STRIP VI SCH ×4 (06:23→22:29)
[2023-05-30 06:38] LABS: HDL Cholesterol 29 mg/dL (40-59)
[2023-05-30] MEDS ORDERED: levoFLOXacin 500MG 100 ML IV SCH (10:00)
[2023-05-30] MEDS: PANTOPRAZOLE 40 MG TAB PO SCH (10:27)
[2023-05-30] MEDS: LISINOPRIL 20 MG TAB PO SCH (10:28)
[2023-05-30] MEDS: ASPirin-EC 81 mg tab PO SCH (10:28)
[2023-05-30] MEDS: ENOXAPARIN SOD 40 MG/0.4 ML SYRINGE SC SCH (10:29)
[2023-05-30] MEDS: ATORVASTATIN 20 MG TAB PO SCH (22:28)
[2023-05-31 04:29] VITALS: BP 100/60; PULSE 102; RESP 19; TEMP 98.1; O2SAT 95
[2023-05-31] MEDS: GABAPENTIN 300 MG CAP PO SCH (05:52)
[2023-05-31 05:56] LABS: Basophils # (auto) 0 10 ^3/uL (0-0.2); Basophils % (auto) 0.6 % (0.0-2.0); Eosinophils # (auto) 0.1 10 ^3/uL (0-0.8); Eosinophils % (auto) 2.1 % (0.0-7.0); Hematocrit 37.7 % (41.0-53.0); Hemoglobin 11.9 g/dL (13.5-17.5); Lymphocytes # (auto) 1.6 10 ^3/uL (0.4-5.4); Mean Corpuscular Hgb Conc. 31.7 g/dL (32.0-36.0); Mean Corpuscular Volume 85.3 fL (80.0-100.0); Monocytes # (auto) 0.4 10 ^3/uL (0-1.3); Neutrophils % (auto) 32.3 % (37.0-80.0); Nucleated Red Blood Cells % 0.2 %; Red Blood Cells 4.41 10^6/uL (4.5-5.90); Red Cell Distribution Width 13.3 % (11.8-14.3); White Blood Cell 3.2 10^3/uL (4.4-10.8)
[2023-05-31 06:14] LABS: Alanine Aminotransferase 24 U/L (7-40); Albumin 3.5 g/dL (3.2-4.8); Alkaline Phosphatase 153 U/L (46-116); Anion Gap 7 (5-15); Aspartate Aminotransferase 17 U/L (13-40); BUN/Creatinine Ratio 10.6 (10.0-20.0); Bilirubin, Total 0.3 mg/dL (0.2-1.0); Blood Urea Nitrogen 10 mg/dL (9-23); Calcium 8.9 mg/dL (8.5-10.1); Carbon Dioxide 23 mmol/L (20-30); Chloride 108 mmol/L (98-107); Glucose 142 mg/dL (74-106); Sodium 138 mmol/L (136-145)
[2023-05-31] MEDS: ACCU-CHEK COMFORT CURVE STRIP VI SCH ×2 (06:50→11:03)
[2023-05-31] MEDS: InsuLIN REG 1unit/0.01ml Soln (100units/ml) SC SCH ×2 (06:51→11:47)
[2023-05-31 08:00] VITALS: PULSE 88; RESP 18; O2SAT 98
[2023-05-31] MEDS: ASPirin-EC 81 mg tab PO SCH (09:04)
[2023-05-31] MEDS: ENOXAPARIN SOD 40 MG/0.4 ML SYRINGE SC SCH (09:05)
[2023-05-31] MEDS: LISINOPRIL 20 MG TAB PO SCH (09:05)
[2023-05-31] MEDS: PANTOPRAZOLE 40 MG TAB PO SCH (09:05)
[2023-05-31 11:02] VITALS: O2SAT 98
== END 2023-05-31 14:00 | disposition home or self-care (01) | DRG 241 ==
LOC: EDBD 11:14 → ER 11:14 → TELE 19:35 → TELE-CENTR 05-30 15:30
PROVIDERS: ADMIT Internal Medicine Geriatric Medicine; ATTEND Internal Medicine
DX: K29.70 Gastritis, unspecified, without bleeding (principal); I21.A1 Myocardial infarction type 2; I69.351 Hemiplegia and hemiparesis following cerebral infarction affecting right dominant side; R19.7 Diarrhea, unspecified; E11.9 Type 2 diabetes mellitus without complications; I10 Essential (primary) hypertension; E78.5 Hyperlipidemia, unspecified; E86.0 Dehydration; Z20.822 Contact with and (suspected) exposure to COVID-19; R00.0 Tachycardia, unspecified; R22.2 Localized swelling, mass and lump, trunk; E04.2 Nontoxic multinodular goiter; Z79.4 Long term (current) use of insulin
CPT/HCPCS: 36415; 70450; 71045; 71260; 76536; 80053; 80061; 81001; 82140; 82248; 82962; 83605; 83690; 83735; 84439; 84443; 84481; 84484; 85025; 85048; 85610; 87040; 87045; 87426; 87427; 87493; 93005; 93306; 99291; G0378; J1815; J1956; J2405